=== PATIENT | male | born 2000 | race Caucasian/White ===

== ENCOUNTER → 2023-11-25 | Emergency (ER) | payer SELFPAY ==
[~2023-11-25] MED LIST: IBUPROFEN 200 MG TAB PO ONE; IBUPROFEN 400 MG TAB ONE; LIDOCAINE 2% W/EPI 1:200,000 MPF 20 ML VIAL IM ONE
--- OUTSIDE RECORDS SUMMARY | 2023-11-25 16:33 | XMS REPORT | Continuity of Care Document ---
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 erythrocyte mean corpuscular volume (MCV) measurement 2019-08-08 03:30:00* Test Item Value Reference Range Interpretation Comme nts Mean Corpuscular Volume (shane t code = 787-2) 92 fL 80-94 [facility] HealthAutomated erythrocyte mean corpuscular hemoglobin (mass per erythrocyte)2019-08-08 03:30:00* Test Item Value Reference Range Interpretation Comme nts Mean Corpuscular Hemoglobin (test code = 785-6) 29.4 pg 27.0-33.0 [facility] HealthAutomated erythrocyte mean corpuscular hemoglobin concentration measurement (mass/[id number] 03:30:00* Test Item Value Reference Range Interpretation Comme nts Mean Corpuscular Hemoglobin Concent (test code = 786-4) 32.0 g/dL 33.0-37.0 [facility] HealthAutomated erythrocyte distribution width [id number] 03:30:00 * Test Item Value Reference Range Interpretation Comme nts Red Cell Distribution Width (test code = 788-0) 13.2 % 10.7-14.5 [facility] HealthAutomated blood platelet count (count/volume)2019-08-08 03:30:00 * Test Item Value Reference Range Interpretation Comme nts Platelet Count (test code = 777-3) 154 10*3/uL 150-450 [facility] HealthAutomated blood platelet mean volume txskkwbqrmz4733-82-04 03:30:00* Test Item Value Reference Range Interpretation Comme nts Mean Platelet Volume (test c ode = 09171-1) 9.5 5.7-10.7 [facility] HealthService comment [id number] 03:30:00* Test Item Value Reference Range Interpretation Comme nts Manual Differential (test co de = 8265-1) ----- [facility] HealthManual blood segmented neutrophils/100 vwaqwybxqs8183-83-45 03:30:00* Test Item Value Reference Range Interpretation Comme nts Neutrophils % (Manual) (test code = 769-0) 60 % 42-75 [facility] HealthManual blood band neutrophils form/100 ozgqasxbjn3725-96-06 03:30:00* Test Item Value Reference Range Interpretation Comme nts Band Neutrophils % (Manual) (test code = 764-1) 7 % 5-11 [facility] HealthManual blood lymphocytes/100 phrwwlakur5167-70-55 03:30:00* Test Item Value Reference Range Interpretation Comme nts Lymphocytes % (Manual) (test code = 737-7) 15 % 21-51 [facility] HealthManual blood monocytes/100 ijhfoccyme9748-84-20 03:30:00* Test Item Value Reference Range Interpretation Comme nts Monocytes % (Manual) (test c ode = 744-3) 12 % 1-9 [facility] HealthManual blood eosinophil count as percentage of total leukocytes 2019-08-08 03:30:00* Test Item Value Reference Range Interpretation Comme nts Eosinophils % (Manual) (test code = 714-6) 6 % 0-7 [facility] HealthBlood platelet detection by light dysrojihec2198-11-29 03:30:00* Test Item Value Reference Range Interpretation Comme nts Platelet Estimate (test code = 9317-9) Adequate [facility] HealthBlood erythrocyte morphology finding laczwfghxwpzta3502-70-73 03:30:00* Test Item Value Reference Range Interpretation Comme nts Red Blood Cell Morphology (t est code = 6742-1) Normal [facility] HealthWhole blood leukocyte morphology finding jcazxxfnrdhxkz7453-44-89 03:30:00* Test Item Value Reference Range Interpretation Comme nts White Blood Cell Morphology (test code = 46779-2) Normal [facility] HealthDetermination of inhaled oxygen concentration (volume fraction) 2019-08-08 03:29:00* Test Item Value Reference Range Interpretation Comme nts FiO2 (test code = 3150-0) 40 % [facility] HealthArterial blood pH zkuoiipxrun2045-99-93 03:29:00* Test Item Value Reference Range Interpretation Comme nts Arterial Blood pH (test code = 2744-1) 7.400 7.350-7. 450 [facility] HealthArterial blood partial pressure of carbon wvntpyr7173-65-95 03:29:00* Test Item Value Reference Range Interpretation Comme nts Arterial Blood Partial Press ure CO2 (test code = 2019-8) 46.7 mm[Hg] 35.0-45.0 [facility] HealthArterial blood partial pressure of oxygen urtaezeglqp5168-56-51 03:29:00* Test Item Value Reference Range Interpretation Comme nts Arterial Blood Partial Press ure O2 (test code = 2703-7) 161.2 mm[Hg] 70.0-100.0 [facility] HealthArterial blood bicarbonate measurement (moles/volume)2019-08-08 03:29:00* Test Item Value Reference Range Interpretation Comme [facility] Arterial Blood HCO3 (test co de = 1960-4) 28.3 mmol/L 22.0-28.0 [facility] HealthArterial blood base excess determination by calculation (moles/volume)2019-08-08 03:29:00* Test Item Value Reference Range Interpretation Comme [facility] Arterial Blood Base Excess ( test code = 1925-7) 2.9 mmol/L -2.0-2.0 [facility] HealthArterial blood hemoglobin measurement by oximetry (mass/volume) 2019-08-08 03:29:00* Test Item Value Reference Range Interpretation Comme [facility] Arterial Blood Hemoglobin (t est code = 57170-6) 12.6 g/dL See Comment [facility] HealthArterial blood oxygen saturation botovfksobf4619-16-58 03:29:00* Test Item Value Reference Range Interpretation Comme [facility] Arterial Blood Oxygen Satura tion (test code = 2708-6) 98.9 % 93.0-100.0 [facility] HealthArterial blood carboxyhemoglobin/total hemoglobin ratio (mass fraction)2019-08-08 03:29:00* Test Item Value Reference Range Interpretation Comme [facility] Arterial Blood Carboxyhemogl obin (test code = 2030-5) 0.1 % <3.0 [facility] HealthArterial blood methemoglobin/total hemoglobin ratio (mass fraction)2019-08-08 03:29:00* Test Item Value Reference Range Interpretation Comme [facility] Arterial Blood Methemoglobin (test code = 2615-3) 0.1 % <3.0 [facility] HealthArterial blood oxyhemoglobin/total hemoglobin ratio (mass fraction)2019-08-08 03:29:00* Test Item Value Reference Range Interpretation Comme [facility] Arterial Blood Oxyhemoglobin (test code = 2714-4) 98.7 % 93.0-100.0 [facility] HealthArterial blood deoxyhemoglobin/total hemoglobin mass ratio 2019-08-08 03:29:00* Test Item Value Reference Range Interpretation Comme [facility] Reduced Hemoglobin (test cod e = 81708-1) 1.1 % <2.0 [facility] HealthArterial blood oxygen content by qwtddvqvonc8775-42-15 03:29:00* Test Item Value Reference Range Interpretation Comme [facility] Arterial Blood Oxygen Conten t (test code = 89874-0) 17.8 mL/dL 16.0-22.0 [facility] HealthGas deliv source Tzlismjrqow8261-92-61 03:29:00* Test Item Value Reference Range Interpretation Comme nts Oxygen Delivery Device (test code = 04648-6) VENTILATOR [facility] HealthSpecimen drawn from [id number] 03:29:00* Test Item Value Reference Range Interpretation Comme nts Blood Gas Puncture Site (shane t code = 44571-8) Right Radial [facility] HealthAssessment of wrist artery patency prior to arterial puncture 2019-08-08 03:29:00* Test Item Value Reference Range Interpretation Comme nts Stiven Test (test code = 70838-2) Pass [facility] HealthArterial blood oxygen saturation measurement by pulse oximetry 2019-08-08 03:29:00* Test Item Value Reference Range Interpretation Comme nts Oxygen Saturation (Pulse Oxi metry) (test code = 51361-4) 100 % [facility] HealthVT rate setting [id number] 03:29:00* Test Item Value Reference Range Interpretation Comme nts Blood Gas Tidal Volume (test code = 90154-2) 600.0 mL [facility] HealthTidal volume.spontaneous/Body weight [Volume/mass] --on mvegtlrlna6260-09-19 03:29:00* Test Item Value Reference Range Interpretation Comme nts Blood Gas Spontaneous Tidal Volume (test code = 25501-7) 229 mL [facility] HealthPAW @ peak insp flow max setting [id number] 03:29:00* Test Item Value Reference Range Interpretation Comme nts Bld Gas Peak Inspiratory Pressure (test code = 85239-6) 18.0 cm[H2O] [facility] HealthMinute volume setting [id number] 03:29:00* Test Item Value Reference Range Interpretation Comme nts Blood Gas Minute Volume (shane t code = 20654-0) 7.41 /min [facility] HealthResp [id number] 03:29:00* Test Item Value Reference Range Interpretation Comme nts Blood Gas Respiration Rate ( test code = 9279-1) 17 /min [facility] HealthPressure support setting [id number] 03:29:00* Test Item Value Reference Range Interpretation Comme nts Blood Gas Pressure Support ( test code = 40172-8) 5 cm[H2O] [facility] HealthVentilation mode [id number] 03:29:00* Test Item Value Reference Range Interpretation Comme [facility] Blood Gas Vent Mode (test co de = 95503-5) SIMV [facility] HealthBreaths setting [id number] 03:29:00* Test Item Value Reference Range Interpretation Comme [facility] Blood Gas Set Respiration Ra te (test code = 64703-9) 8.0 /min [facility] (CPAP)2019-08-08 03:29:00* Test Item Value Reference Range Interpretation Comme nts Blood Gas PEEP or CPAP (test code = 09336-7) 5.0 cm[H2O] [facility] [id number] 03:29:00* Test Item Value Reference Range Interpretation Comme nts N/A (test code = 8268-5) 1 [facility] AdministrationDetermination of inhaled oxygen concentration (volume fraction) 2019-08-08 03:29:00* Test Item Value Reference Range Interpretation Comme nts FiO2 (test code = 3150-0) 40 % [facility] AdministrationArter[facility] blood pH sbdiuahemcj7833-78-53 03:29:00* Test Item Value Reference Range Interpretation Comme [facility] Arterial Blood pH (test code = 2744-1) 7.400 7.350-7. 450 [facility] AdministrationAr[facility] blood partial pressure of carbon ajhvohr4988-23-52 03:29:00* Test Item Value Reference Range Interpretation Comme [facility] Arterial Blood Partial Press ure CO2 (test code = 2019-8) 46.7 mm[Hg] 35.0-45.0 [facility]Ar[facility] partial pressure of oxygen mufmsqqymmi8826-35-01 03:29:00* Test Item Value Reference Range Interpretation Comme [facility] Arterial Blood Partial Press ure O2 (test code = 2703-7) 161.2 mm[Hg] 70.0-100.0 [facility] AdministrationAr[facility] blood bicarbonate measurement (moles/volume)2019-08-08 03:29:00* Test Item Value Reference Range Interpretation Comme [facility] Arterial Blood HCO3 (test co de = 1959-4) 28.3 mmol/L 22.0-28.0 [facility] AdministrationAr[facility] blood base excess determination by calculation (moles/volume)2019-08-08 03:29:00* Test Item Value Reference Range Interpretation Comme [facility] Arterial Blood Base Excess ( test code = 1925-7) 2.9 mmol/L -2.0-2.0 [facility] HealthArterial blood hemoglobin measurement by oximetry (mass/volume) 2019-08-08 03:29:00* Test Item Value Reference Range Interpretation Comme [facility] Arterial Blood Hemoglobin (t est code = 79083-2) 12.6 g/dL See Comment [facility] HealthArterial blood oxygen saturation ooztnhkamzh0774-78-71 03:29:00* Test Item Value Reference Range Interpretation Comme [facility] Arterial Blood Oxygen Satura tion (test code = 2708-6) 98.9 % 93.0-100.0 [facility] HealthArterial blood carboxyhemoglobin/total hemoglobin ratio (mass fraction)2019-08-08 03:29:00* Test Item Value Reference Range Interpretation Comme [facility] Arterial Blood Carboxyhemogl obin (test code = 2030-5) 0.1 % <3.0 [facility] HealthArterial blood methemoglobin/total hemoglobin ratio (mass fraction)2019-08-08 03:29:00* Test Item Value Reference Range Interpretation Comme [facility] Arterial Blood Methemoglobin (test code = 2615-3) 0.1 % <3.0 [facility] HealthArterial blood oxyhemoglobin/total hemoglobin ratio (mass fraction)2019-08-08 03:29:00* Test Item Value Reference Range Interpretation Comme [facility] Arterial Blood Oxyhemoglobin (test code = 2714-4) 98.7 % 93.0-100.0 [facility] HealthArterial blood deoxyhemoglobin/total hemoglobin mass ratio 2019-08-08 03:29:00* Test Item Value Reference Range Interpretation Comme [facility] Reduced Hemoglobin (test cod e = 34027-9) 1.1 % <2.0 [facility] AdministrationAr[facility] blood oxygen content by ljoshiqeefz5496-36-58 03:29:00* Test Item Value Reference Range Interpretation Comme [facility] Arterial Blood Oxygen Conten t (test code = 53771-8) 17.8 mL/dL 16.0-22.0 [facility] HealthGas deliv source Ibldcqtbhhf2056-87-04 03:29:00* Test Item Value Reference Range Interpretation Comme [facility] Oxygen Delivery Device (test code = 67402-1) VENTILATOR [facility] HealthSpecimen drawn from [id number] 03:29:00* Test Item Value Reference Range Interpretation Comme nts Blood Gas Puncture Site (shane t code = 23350-9) Right Radial [facility] HealthAssessment of wrist artery patency prior to arterial puncture 2019-08-08 03:29:00* Test Item Value Reference Range Interpretation Comme nts Stiven Test (test code = 68026-4) Pass [facility] HealthArterial blood oxygen saturation measurement by pulse oximetry 2019-08-08 03:29:00* Test Item Value Reference Range Interpretation Comme nts Oxygen Saturation (Pulse Oxi metry) (test code = 68009-7) 100 % [facility] HealthVT rate setting [id number] 03:29:00* Test Item Value Reference Range Interpretation Comme nts Blood Gas Tidal Volume (test code = 74102-2) 600.0 mL [facility] HealthTidal volume.spontaneous/Body weight [Volume/mass] --on xtlhxslbid1621-42-36 03:29:00* Test Item Value Reference Range Interpretation Comme nts Blood Gas Spontaneous Tidal Volume (test code = 62064-7) 229 mL [facility] HealthPAW @ peak insp flow max setting [id number] 03:29:00* Test Item Value Reference Range Interpretation Comme nts Bld Gas Peak Inspiratory Pressure (test code = 55401-9) 18.0 cm[H2O] [facility] HealthMinute volume setting [id number] 03:29:00* Test Item Value Reference Range Interpretation Comme nts Blood Gas Minute Volume (shane t code = 19519-0) 7.41 /min [facility] HealthResp [id number] 03:29:00* Test Item Value Reference Range Interpretation Comme nts Blood Gas Respiration Rate ( test code = 9279-1) 17 /min [facility] HealthPressure support setting Wwys6423-59-00 03:29:00* Test Item Value Reference Range Interpretation Comme nts Blood Gas Pressure Support ( test code = 17410-2) 5 cm[H2O] [facility] HealthVentilation mode [id number] 03:29:00* Test Item Value Reference Range Interpretation Comme nts Blood Gas Vent Mode (test co de = 09700-0) SIMV [facility] HealthBreaths setting [id number] 03:29:00* Test Item Value Reference Range Interpretation Comme nts Blood Gas Set Respiration Ra te (test code = 64662-8) 8.0 /min [facility] AdministrationContinuous positive airway pressure (CPAP)2019-08-08 03:29:00* Test Item Value Reference Range Interpretation Comme [facility] Blood Gas PEEP or CPAP (test code = 15393-5) 5.0 cm[H2O] [facility] [id number] 03:29:00* Test Item Value Reference Range Interpretation Comme [facility] N/A (test code = 8268-5) 1 [facility] AdministrationDetermination of inhaled oxygen concentration (volume fraction) 2019-08-08 03:29:00* Test Item Value Reference Range Interpretation Comme [facility] FiO2 (test code = 3150-0) 40 % [facility] AdministrationArterial blood pH ehlmeqyzabb5926-77-92 03:29:00* Test Item Value Reference Range Interpretation Comme [facility] Arterial Blood pH (test code = 2744-1) 7.400 7.350-7. 450 [facility] AdministrationArterial blood partial pressure of carbon munbbrw7337-43-37 03:29:00* Test Item Value Reference Range Interpretation Comme [facility] Arterial Blood Partial Press ure CO2 (test code = 2019-8) 46.7 mm[Hg] 35.0-45.0 [facility] HealthArterial blood partial pressure of oxygen mdddmlhhjjr4557-76-24 03:29:00* Test Item Value Reference Range Interpretation Comme [facility] Arterial Blood Partial Press ure O2 (test code = 2703-7) 161.2 mm[Hg] 70.0-100.0 [facility] AdministrationArterial blood bicarbonate measurement (moles/volume)2019-08-08 03:29:00* Test Item Value Reference Range Interpretation Comme [facility] Arterial Blood HCO3 (test co de = 1960-4) 28.3 mmol/L 22.0-28.0 [facility] AdministrationArterial blood base excess determination by calculation (moles/volume)2019-08-08 03:29:00* Test Item Value Reference Range Interpretation Comme [facility] Arterial Blood Base Excess ( test code = 1925-7) 2.9 mmol/L -2.0-2.0 [facility] AdministrationAr[facility]ial blood hemoglobin measurement by oximetry (mass/volume) 2019-08-08 03:29:00* Test Item Value Reference Range Interpretation Comme [facility] Arterial Blood Hemoglobin (t est code = 11561-8) 12.6 g/dL See Comment [facility] HealthArterial blood oxygen saturation wfmhlrioqli1371-44-02 03:29:00* Test Item Value Reference Range Interpretation Comme [facility] Arterial Blood Oxygen Satura tion (test code = 2708-6) 98.9 % 93.0-100.0 [facility] HealthArterial blood carboxyhemoglobin/total hemoglobin ratio (mass fraction)2019-08-08 03:29:00* Test Item Value Reference Range Interpretation Comme [facility] Arterial Blood Carboxyhemogl obin (test code = 2030-5) 0.1 % <3.0 [facility] HealthArterial blood methemoglobin/total hemoglobin ratio (mass fraction)2019-08-08 03:29:00* Test Item Value Reference Range Interpretation Comme [facility] Arterial Blood Methemoglobin (test code = 2615-3) 0.1 % <3.0 [facility] HealthArterial blood oxyhemoglobin/total hemoglobin ratio (mass fraction)2019-08-08 03:29:00* Test Item Value Reference Range Interpretation Comme [facility] Arterial Blood Oxyhemoglobin (test code = 2714-4) 98.7 % 93.0-100.0 [facility] HealthArterial blood deoxyhemoglobin/total hemoglobin mass ratio 2019-08-08 03:29:00* Test Item Value Reference Range Interpretation Comme [facility] Reduced Hemoglobin (test cod e = 72736-8) 1.1 % <2.0 [facility] HealthArterial blood oxygen content by dzmkillcflr7785-99-46 03:29:00* Test Item Value Reference Range Interpretation Comme [facility] Arterial Blood Oxygen Conten t (test code = 72263-2) 17.8 mL/dL 16.0-22.0 [facility] HealthGas deliv source Hregkojoqfr1786-03-47 03:29:00* Test Item Value Reference Range Interpretation Comme [facility] Oxygen Delivery Device (test code = 88369-6) VENTILATOR [facility] HealthSpecimen drawn from [id number] 03:29:00* Test Item Value Reference Range Interpretation Comme [facility] Blood Gas Puncture Site (shane t code = 24201-0) Right Radial [facility] HealthAssessment of wrist artery patency prior to arterial puncture 2019-08-08 03:29:00* Test Item Value Reference Range Interpretation Comme [facility] Stiven Test (test code = 17935-0) Pass [facility] HealthArterial blood oxygen saturation measurement by pulse oximetry 2019-08-08 03:29:00* Test Item Value Reference Range Interpretation Comme nts Oxygen Saturation (Pulse Oxi metry) (test code = 99946-9) 100 % [facility] HealthVT rate setting [id number] 03:29:00* Test Item Value Reference Range Interpretation Comme nts Blood Gas Tidal Volume (test code = 26345-4) 600.0 mL [facility] HealthTidal volume.spontaneous/Body weight [Volume/mass] --on dectdeqllc5508-38-63 03:29:00* Test Item Value Reference Range Interpretation Comme nts Blood Gas Spontaneous Tidal Volume (test code = 69605-0) 229 mL [facility] HealthPAW @ peak insp flow max setting [id number] 03:29:00* Test Item Value Reference Range Interpretation Comme nts Bld Gas Peak Inspiratory Pressure (test code = 29209-3) 18.0 cm[H2O] [facility] HealthMinute volume setting [id number] 03:29:00* Test Item Value Reference Range Interpretation Comme nts Blood Gas Minute Volume (shane t code = 53398-0) 7.41 /min [facility] HealthResp [id number] 03:29:00* Test Item Value Reference Range Interpretation Comme nts Blood Gas Respiration Rate ( test code = 9279-1) 17 /min [facility] HealthPressure support setting [id number] 03:29:00* Test Item Value Reference Range Interpretation Comme nts Blood Gas Pressure Support ( test code = 02822-8) 5 cm[H2O] [facility] HealthVentilation mode Isvv2049-08-50 03:29:00* Test Item Value Reference Range Interpretation Comme nts Blood Gas Vent Mode (test co de = 65528-4) SIMV [facility] HealthBreaths setting [id number] 03:29:00* Test Item Value Reference Range Interpretation Comme nts Blood Gas Set Respiration Ra te (test code = 52386-8) 8.0 /min [facility] HealthContinuous positive airway pressure (CPAP)2019-08-08 03:29:00* Test Item Value Reference Range Interpretation Comme nts Blood Gas PEEP or CPAP (test code = 18136-7) 5.0 cm[H2O] [facility] HealthService Cmnt 07 [id number] 03:29:00* Test Item Value Reference Range Interpretation Comme nts N/A (test code = 8268-5) 1 [facility] HealthUrinalysis specimen collection [id number] 12:00:00* Test Item Value Reference Range Interpretation Comme nts Urine Source (test code = 91451-0) URCATH [facility] HealthColor of Urine by Bqly0788-00-60 12:00:00* Test Item Value Reference Range Interpretation Comme nts Urine Color (test code = 31409-9) Yellow Yel-Adeline * [facility] HealthUrine clarity cwoaexhkqbhzh2753-33-69 12:00:00* Test Item Value Reference Range Interpretation Comme nts Urine Appearance (test code = 13257-8) Clear Clear * [facility]Urine pH measurement by automated test [id number] 12:00:00* Test Item Value Reference Range Interpretation Comme nts Urine pH (test code = 75886-3) 6.0 5.0-8.0 [facility] HealthSpecific gravity of Urine by Automated test [id number] 12:00:00* Test Item Value Reference Range Interpretation Comme nts Urine Specific [place] (test code = 05517-5) 1.029 1.005-1.030 [facility]Urine protein measurement by automated test strip (mass/volume) 2019-08-07 12:00:00* Test Item Value Reference Range Interpretation Comme nts Urine Protein (test code = 77773-1) 10 mg/dL Negative * [facility]Urine glucose measurement by automated test strip (mass/volume) 2019-08-07 12:00:00* Test Item Value Reference Range Interpretation Comme nts Urine Glucose (UA) (test cod e = 27599-7) Negative mg/dL Negative * [facility] HealthUrine ketones measurement by automated test strip (mass/volume) 2019-08-07 12:00:00* Test Item Value Reference Range Interpretation Comme nts Urine Ketones (test code = 90399-5) Negative mg/dL Negative * [facility]Urine erythrocytes count by automated test strip (number/volume) 2019-08-07 12:00:00* Test Item Value Reference Range Interpretation Comme nts Urine Occult Blood (test cod e = 38089-5) Negative Negative * [facility] HealthUrine nitrite detection by automated test [id number] 12:00:00* Test Item Value Reference Range Interpretation Comme nts Urine Nitrite (test code = 35176-0) Negative Negative [facility]Urine total bilirubin measurement by automated test strip (mass/volume)2019-08-07 12:00:00* Test Item Value Reference Range Interpretation Comme nts Urine Bilirubin (test code = 97277-5) Negative mg/dL Negative [facility]Urine urobilinogen measurement by automated test strip (mass/volume)2019-08-07 12:00:00* Test Item Value Reference Range Interpretation Comme nts Urine Urobilinogen (test cod e = 62932-1) Negative mg/dL 0.0-1.0 [facility]Urine leukocytes count by automated test strip (number/volume) 2019-08-07 12:00:00* Test Item Value Reference Range Interpretation Comme nts Urine Leukocyte Esterase (test code = 93962-5) Negative {Henry}/uL Negative [facility] HealthMicroscopic examination of czkng9251-42-37 12:00:00* Test Item Value Reference Range Interpretation Comme nts Microscopic Urinalysis (T) ( test code = 42085-2) ----- [facility] HealthUrine sediment erythrocyte count by microscopy (number/high power field)2019-08-07 12:00:00* Test Item Value Reference Range Interpretation Comme nts Urine RBC (test code = 63803-2) 3-10 /[HPF] 0-2 [facility]Urine sediment leukocyte count by microscopy (number/high power field)2019-08-07 12:00:00* Test Item Value Reference Range Interpretation Comme nts Urine WBC (test code = 5821-4) 0-5 /[HPF] 0-5 [facility]Urine sediment epithelial cell count by microscopy (number/high power field)2019-08-07 12:00:00* Test Item Value Reference Range Interpretation Comme nts Urine Epithelial Cells (test code = 5787-7) None Seen /[HPF] Few [facility] HealthUrine sediment crystal count by microscopy (number/high power field)2019-08-07 12:00:00* Test Item Value Reference Range Interpretation Comme nts Urine Crystals (test code = 96402-6) None Seen /[HPF] None * [facility]Urine sediment bacteria count by microscopy (number/high power field)2019-08-07 12:00:00* Test Item Value Reference Range Interpretation Comme nts Urine Bacteria (test code = 5769-5) None Seen /[HPF] None [facility]Urine sediment casts count by microscopy (number/low power field) 2019-08-07 12:00:00* Test Item Value Reference Range Interpretation Comme nts Urine Casts (test code = 9842-6) Present /[LPF] None * [facility]Urine sediment hyaline cast count by microscopy (number/low power field)2019-08-07 12:00:00* Test Item Value Reference Range Interpretation Comme nts Urine Hyaline Casts (test co de = 5796-8) 0-1 /[LPF] 0-1 [facility] HealthYeast detection in urine sediment by light bwdzpgsflw3900-30-32 12:00:00* Test Item Value Reference Range Interpretation Comme nts Urine Yeast (test code = 95572-2) None Seen /[HPF] None [facility] comment [id number] 12:00:00* Test Item Value Reference Range Interpretation Comme nts Urinalysis Comment (test code = 8262-8) * See_Comment [Automated messa ge] The system which generated this result transmitted reference range: *. The reference range was not used to interpret this result as normal/abnormal. [facility] HealthUrinalysis specimen collection [id number] 12:00:00* Test Item Value Reference Range Interpretation Comme nts Urine Source (test code = 48005-2) URCATH PETE HealthColor of Urine by [id number] 12:00:00* Test Item Value Reference Range Interpretation Comme nts Urine Color (test code = 54744-2) Yellow Yel-Adeline * [facility] HealthUrine clarity qrezcufpyqylr4687-72-46 12:00:00* Test Item Value Reference Range Interpretation Comme nts Urine Appearance (test code = 85764-3) Clear Clear * [facility]Urine pH measurement by automated test [id number] 12:00:00* Test Item Value Reference Range Interpretation Comme nts Urine pH (test code = 16185-6) 6.0 5.0-8.0 [facility]Specific gravity of Urine by Automated test [id number] 12:00:00* Test Item Value Reference Range Interpretation Comme nts Urine Specific [place] (test code = 90656-6) 1.029 1.005-1.030 [facility]Urine protein measurement by automated test strip (mass/volume) 2019-08-07 12:00:00* Test Item Value Reference Range Interpretation Comme nts Urine Protein (test code = 87651-0) 10 mg/dL Negative * [facility]Urine glucose measurement by automated test strip (mass/volume) 2019-08-07 12:00:00* Test Item Value Reference Range Interpretation Comme nts Urine Glucose (UA) (test cod e = 95328-3) Negative mg/dL Negative * [facility] HealthUrine ketones measurement by automated test strip (mass/volume) 2019-08-07 12:00:00* Test Item Value Reference Range Interpretation Comme nts Urine Ketones (test code = 70936-6) Negative mg/dL Negative * [facility]Urine erythrocytes count by automated test strip (number/volume) 2019-08-07 12:00:00* Test Item Value Reference Range Interpretation Comme nts Urine Occult Blood (test cod e = 62317-5) Negative Negative * [facility] HealthUrine nitrite detection by automated test [id number] 12:00:00* Test Item Value Reference Range Interpretation Comme nts Urine Nitrite (test code = 07639-2) Negative Negative [facility]Urine total bilirubin measurement by automated test strip (mass/volume)2019-08-07 12:00:00* Test Item Value Reference Range Interpretation Comme nts Urine Bilirubin (test code = 62082-0) Negative mg/dL Negative [facility]Urine urobilinogen measurement by automated test strip (mass/volume)2019-08-07 12:00:00* Test Item Value Reference Range Interpretation Comme nts Urine Urobilinogen (test cod e = 63068-2) Negative mg/dL 0.0-1.0 [facility]Urine leukocytes count by automated test strip (number/volume) 2019-08-07 12:00:00* Test Item Value Reference Range Interpretation Comme nts Urine Leukocyte Esterase (test code = 18058-5) Negative {Henry}/uL Negative [facility] HealthMicroscopic examination of [id number] 12:00:00* Test Item Value Reference Range Interpretation Comme nts Microscopic Urinalysis (T) ( test code = 40368-0) ----- [facility] HealthUrine sediment erythrocyte count by microscopy (number/high power field)2019-08-07 12:00:00* Test Item Value Reference Range Interpretation Comme nts Urine RBC (test code = 62105-6) 3-10 /[HPF] 0-2 [facility]Urine sediment leukocyte count by microscopy (number/high power field)2019-08-07 12:00:00* Test Item Value Reference Range Interpretation Comme nts Urine WBC (test code = 5821-4) 0-5 /[HPF] 0-5 [facility]Urine sediment epithelial cell count by microscopy (number/high power field)2019-08-07 12:00:00* Test Item Value Reference Range Interpretation Comme nts Urine Epithelial Cells (test code = 5787-7) None Seen /[HPF] Few [facility] HealthUrine sediment crystal count by microscopy (number/high power field)2019-08-07 12:00:00* Test Item Value Reference Range Interpretation Comme nts Urine Crystals (test code = 40013-4) None Seen /[HPF] None * [facility]Urine sediment bacteria count by microscopy (number/high power field)2019-08-07 12:00:00* Test Item Value Reference Range Interpretation Comme nts Urine Bacteria (test code = 5769-5) None Seen /[HPF] None [facility]Urine sediment casts count by microscopy (number/low power field) 2019-08-07 12:00:00* Test Item Value Reference Range Interpretation Comme nts Urine Casts (test code = 9842-6) Present /[LPF] None * [facility]Urine sediment hyaline cast count by microscopy (number/low power field)2019-08-07 12:00:00* Test Item Value Reference Range Interpretation Comme nts Urine Hyaline Casts (test co de = 5796-8) 0-1 /[LPF] 0-1 [facility] HealthYeast detection in urine sediment by light rszdaljfnt1762-94-07 12:00:00* Test Item Value Reference Range Interpretation Comme nts Urine Yeast (test code = 88154-7) None Seen /[HPF] None [facility] comment 12:00:00* Test Item Value Reference Range Interpretation Comme nts Urinalysis Comment (test code = 8262-8) * See_Comment [Automated messa ge] The system which generated this result transmitted reference range: *. The reference range was not used to interpret this result as normal/abnormal. [facility] HealthUrinalysis specimen collection [id number] 12:00:00* Test Item Value Reference Range Interpretation Comme nts Urine Source (test code = 03785-3) URCATH [facility] HealthColor of Urine by Rcoi0559-59-81 12:00:00* Test Item Value Reference Range Interpretation Comme nts Urine Color (test code = 42379-7) Yellow Yel-Adeline * [facility] HealthUrine clarity apjzzrouqhjhd7259-29-63 12:00:00* Test Item Value Reference Range Interpretation Comme nts Urine Appearance (test code = 47072-4) Clear Clear * [facility]Urine pH measurement by automated test [id number] 12:00:00* Test Item Value Reference Range Interpretation Comme nts Urine pH (test code = 58937-3) 6.0 5.0-8.0 [facility]Specific gravity of Urine by Automated test tdhnu1793-89-02 12:00:00* Test Item Value Reference Range Interpretation Comme nts Urine Specific [place] (test code = 36450-0) 1.029 1.005-1.030 [facility]Urine protein measurement by automated test strip (mass/volume) 2019-08-07 12:00:00* Test Item Value Reference Range Interpretation Comme nts Urine Protein (test code = 03522-6) 10 mg/dL Negative * [facility]Urine glucose measurement by automated test strip (mass/volume) 2019-08-07 12:00:00* Test Item Value Reference Range Interpretation Comme nts Urine Glucose (UA) (test cod e = 67871-0) Negative mg/dL Negative * [facility]Urine ketones measurement by automated test strip (mass/volume) 2019-08-07 12:00:00* Test Item Value Reference Range Interpretation Comme nts Urine Ketones (test code = 84267-2) Negative mg/dL Negative * [facility]Urine erythrocytes count by automated test strip (number/volume) 2019-08-07 12:00:00* Test Item Value Reference Range Interpretation Comme nts Urine Occult Blood (test cod e = 35469-8) Negative Negative * [facility] HealthUrine nitrite detection by automated test [id number] 12:00:00* Test Item Value Reference Range Interpretation Comme nts Urine Nitrite (test code = 38591-0) Negative Negative [facility]Urine total bilirubin measurement by automated test strip (mass/volume)2019-08-07 12:00:00* Test Item Value Reference Range Interpretation Comme nts Urine Bilirubin (test code = 67595-7) Negative mg/dL Negative [facility]Urine urobilinogen measurement by automated test strip (mass/volume)2019-08-07 12:00:00* Test Item Value Reference Range Interpretation Comme nts Urine Urobilinogen (test cod e = 13218-2) Negative mg/dL 0.0-1.0 [facility]rine leukocytes count by automated test strip (number/volume) 2019-08-07 12:00:00* Test Item Value Reference Range Interpretation Comme nts Urine Leukocyte Esterase (test code = 05807-1) Negative {Henry}/uL Negative [facility] HealthMicroscopic examination of [id number] 12:00:00* Test Item Value Reference Range Interpretation Comme nts Microscopic Urinalysis (T) ( test code = 01349-4) ----- [facility] HealthUrine sediment erythrocyte count by microscopy (number/high power field)2019-08-07 12:00:00* Test Item Value Reference Range Interpretation Comme nts Urine RBC (test code = 38690-1) 3-10 /[HPF] 0-2 [facility]rine sediment leukocyte count by microscopy (number/high power field)2019-08-07 12:00:00* Test Item Value Reference Range Interpretation Comme nts Urine WBC (test code = 5821-4) 0-5 /[HPF] 0-5 [facility]Urine sediment epithelial cell count by microscopy (number/high power field)2019-08-07 12:00:00* Test Item Value Reference Range Interpretation Comme nts Urine Epithelial Cells (test code = 5787-7) None Seen /[HPF] Few [facility]Urine sediment crystal count by microscopy (number/high power field)2019-08-07 12:00:00* Test Item Value Reference Range Interpretation Comme nts Urine Crystals (test code = 61319-2) None Seen /[HPF] None * [facility]Urine sediment bacteria count by microscopy (number/high power field)2019-08-07 12:00:00* Test Item Value Reference Range Interpretation Comme nts Urine Bacteria (test code = 5769-5) None Seen /[HPF] None [facility]Urine sediment casts count by microscopy (number/low power field) 2019-08-07 12:00:00* Test Item Value Reference Range Interpretation Comme nts Urine Casts (test code = 9842-6) Present /[LPF] None * [facility]rine sediment hyaline cast count by microscopy (number/low power field)2019-08-07 12:00:00* Test Item Value Reference Range Interpretation Comme nts Urine Hyaline Casts (test co de = 5796-8) 0-1 /[LPF] 0-1 [facility] HealthYeast detection in urine sediment by light tgljldpapr7333-58-00 12:00:00* Test Item Value Reference Range Interpretation Comme nts Urine Yeast (test code = 63441-6) None Seen /[HPF] None [facility] comment 12:00:00* Test Item Value Reference Range Interpretation Comme nts Urinalysis Comment (test code = 8262-8) * See_Comment [Automated messa ge] The system which generated this result transmitted reference range: *. The reference range was not used to interpret this result as normal/abnormal. [facility] HealthManual blood basophils/100 qeaublllkz6323-57-79 04:55:00* Test Item Value Reference Range Interpretation Comme nts Basophils % (Manual) (test c ode = 707-0) 1 % 0-2 [facility] HealthManual blood basophils/100 wdpdiuyjpt9750-60-06 04:55:00* Test Item Value Reference Range Interpretation Comme nts Basophils % (Manual) (test c ode = 707-0) 1 % 0-2 [facility] HealthManual blood basophils/100 nwkipcptzz6175-25-28 04:55:00* Test Item Value Reference Range Interpretation Comme nts Basophils % (Manual) (test c ode = 707-0) 1 % 0-2 [facility] HealthUrine sediment granular casts count by microscopy (number/low power field)2019-08-06 16:55:00* Test Item Value Reference Range Interpretation Comme nts Urine Granular Casts (test c ode = 5793-5) 0-1 /[LPF] None * [facility] HealthUrine methamphetamine ljbohj0943-41-12 16:55:00* Test Item Value Reference Range Interpretation Comme nts Urine Methamphetamines Scree n (test code = 92658-6) Negative ng/mL Altben=694 [facility] HealthUrine propoxyphene screening huop1891-62-59 16:55:00* Test Item Value Reference Range Interpretation Comme nts Urine Propoxyphene Screen (test code = 99730-7) Negative ng/mL Acjkeb=834 [facility]Urine amphetamines detection by screening vaeaqz9162-88-38 16:55:00* Test Item Value Reference Range Interpretation Comme nts Urine Amphetamines Screen (test code = 67566-5) Positive ng/mL Izwcvc=223 [facility] buprenorphine screen with reflex iaayxsbhkbhu1113-49-08 16:55:00* Test Item Value Reference Range Interpretation Comme nts Urine Buprenorphine (test co de = 3414-0) Negative ng/mL Cutoff=10 [facility]Urine barbiturates detection by screening tqwkaw9940-43-37 16:55:00* Test Item Value Reference Range Interpretation Comme nts Urine Barbiturates Screen (test code = 62089-6) Negative ng/mL Rcysqn=697 [facility]rine benzodiazepines detection by screening oyrouj5441-10-37 16:55:00* Test Item Value Reference Range Interpretation Comme nts Urine Benzodiazepines Screen (test code = 83669-8) Negative ng/mL Khrpcr=085 [facility]rine benzoylecgonine detection by screening nqutig2263-11-85 16:55:00* Test Item Value Reference Range Interpretation Comme nts Urine Cocaine Screen (test code = 87888-6) Positive ng/mL Zfomqv=774 [facility] HealthUrine methadone ougxsn4973-89-39 16:55:00* Test Item Value Reference Range Interpretation Comme nts Urine Methadone, Qualitative (test code = 37490-4) Negative ng/mL Zrvqlq=251 [facility]Urine opiates screening aegp6105-39-81 16:55:00* Test Item Value Reference Range Interpretation Comme nts Urine Opiates Screen (test code = 11056-8) Negative ng/mL Oenuif=422 [facility]Urine phencyclidine detection by screening wwoqjh7616-35-47 16:55:00* Test Item Value Reference Range Interpretation Comme nts Urine Phencyclidine Screen (test code = 97679-3) Negative ng/mL Cutoff=25 [facility]rine cannabinoids detection by screening ybfwny5840-23-71 16:55:00* Test Item Value Reference Range Interpretation Comme nts Urine Cannabinoids (test cod e = 69092-5) Positive ng/mL Cutoff=50 [facility] HealthScreening urine tricyclic antidepressants pzzpmlhyb7036-94-15 16:55:00* Test Item Value Reference Range Interpretation Comme nts Ur Tricyclic Antidepressants Screen (test code = 92791-8) Negative ng/mL Tigckb=319 [facility]Urine oxycodone detection by screening ckwjab1184-73-43 16:55:00 * Test Item Value Reference Range Interpretation Comme nts Urine Oxycodone Screen (test code = 09356-4) Negative ng/mL Dlkkqu=045 [facility] HealthSpecific gravity of Urine by Automated test rdxvv3495-41-86 16:55:00* Test Item Value Reference Range Interpretation Comme nts Urine Specific [place] (test code = 46660-7) > 1.030 1.005-1.030 [facility]Urine pH measurement by automated test sczxx5812-38-36 16:55:00* Test Item Value Reference Range Interpretation Comme nts Urine pH (test code = 26840-7) 6.0 5.0-8.0 [facility] drug screen comment gxzclwbsjohpyx3847-22-93 16:55:00* Test Item Value Reference Range Interpretation Comme nts Urine Drug Screen Comment (t est code = 81012-9) See Note [facility] HealthUrine sediment granular casts count by microscopy (number/low power field)2019-08-06 16:55:00* Test Item Value Reference Range Interpretation Comme nts Urine Granular Casts (test c ode = 5793-5) 0-1 /[LPF] None * [facility] Health[facility]rine methamphetamine mebiqz9337-72-73 16:55:00* Test Item Value Reference Range Interpretation Comme nts Urine Methamphetamines Scree n (test code = 46196-6) Negative ng/mL Otwpyf=609 [facility]Urine propoxyphene screening duwu3161-10-78 16:55:00* Test Item Value Reference Range Interpretation Comme nts Urine Propoxyphene Screen (test code = 42256-2) Negative ng/mL Ccxlyk=171 [facility]Urine amphetamines detection by screening botowo9850-53-86 16:55:00* Test Item Value Reference Range Interpretation Comme nts Urine Amphetamines Screen (test code = 81139-7) Positive ng/mL Rcaxtd=123 [facility] buprenorphine screen with reflex wvptkchqsgze5958-70-70 16:55:00* Test Item Value Reference Range Interpretation Comme nts Urine Buprenorphine (test co de = 3414-0) Negative ng/mL Cutoff=10 [facility]Urine barbiturates detection by screening nwfset2772-16-98 16:55:00* Test Item Value Reference Range Interpretation Comme nts Urine Barbiturates Screen (test code = 83850-0) Negative ng/mL Wlhpfn=020 [facility]rine benzodiazepines detection by screening lslqzz4975-55-77 16:55:00* Test Item Value Reference Range Interpretation Comme nts Urine Benzodiazepines Screen (test code = 71349-4) Negative ng/mL Qajjpp=210 [facility]rine benzoylecgonine detection by screening pvxxvz4945-83-19 16:55:00* Test Item Value Reference Range Interpretation Comme nts Urine Cocaine Screen (test code = 63380-3) Positive ng/mL Pmkksr=310 [facility]Urine methadone idrkvc2706-63-14 16:55:00* Test Item Value Reference Range Interpretation Comme nts Urine Methadone, Qualitative (test code = 36928-0) Negative ng/mL Jgexft=610 [facility]Urine opiates screening xkmf4913-23-06 16:55:00* Test Item Value Reference Range Interpretation Comme nts Urine Opiates Screen (test code = 12614-3) Negative ng/mL Awfjoz=411 [facility]Urine phencyclidine detection by screening qufhmw0404-21-79 16:55:00* Test Item Value Reference Range Interpretation Comme nts Urine Phencyclidine Screen (test code = 45487-3) Negative ng/mL Cutoff=25 [facility]Urine cannabinoids detection by screening piwoja4739-52-21 16:55:00* Test Item Value Reference Range Interpretation Comme nts Urine Cannabinoids (test cod e = 74094-4) Positive ng/mL Cutoff=50 [facility] HealthScreening urine tricyclic antidepressants zesbxzlsl9557-20-89 16:55:00* Test Item Value Reference Range Interpretation Comme nts Ur Tricyclic Antidepressants Screen (test code = 54038-3) Negative ng/mL Rtclmq=017 [facility]rine oxycodone detection by screening vmuxep5505-41-50 16:55:00 * Test Item Value Reference Range Interpretation Comme nts Urine Oxycodone Screen (test code = 12890-0) Negative ng/mL Cgroir=203 [facility] HealthSpecific gravity of Urine by Automated test qbihu1084-12-48 16:55:00* Test Item Value Reference Range Interpretation Comme nts Urine Specific [place] (test code = 62124-5) > 1.030 1.005-1.030 [facility] pH measurement by automated test nppxj1176-04-53 16:55:00* Test Item Value Reference Range Interpretation Comme nts Urine pH (test code = 86654-1) 6.0 5.0-8.0 [facility] drug screen comment chncikjtsvymoh1007-34-75 16:55:00* Test Item Value Reference Range Interpretation Comme nts Urine Drug Screen Comment (t est code = 07576-5) See Note [facility]rine sediment granular casts count by microscopy (number/low power field)2019-08-06 16:55:00* Test Item Value Reference Range Interpretation Comme nts Urine Granular Casts (test c ode = 5793-5) 0-1 /[LPF] None * [facility] Health[facility]rine methamphetamine cjdupp4610-16-41 16:55:00* Test Item Value Reference Range Interpretation Comme nts Urine Methamphetamines Scree n (test code = 91095-7) Negative ng/mL Qzopyv=737 [facility]rine propoxyphene screening oant3959-61-36 16:55:00* Test Item Value Reference Range Interpretation Comme nts Urine Propoxyphene Screen (test code = 38099-7) Negative ng/mL Jbbaip=331 [facility]Urine amphetamines detection by screening wnpbkd8743-13-15 16:55:00* Test Item Value Reference Range Interpretation Comme nts Urine Amphetamines Screen (test code = 38784-7) Positive ng/mL Mqcyuo=025 [facility]rine buprenorphine screen with reflex jyzgrivkrkzr1215-12-06 16:55:00* Test Item Value Reference Range Interpretation Comme nts Urine Buprenorphine (test co de = 3414-0) Negative ng/mL Cutoff=10 [facility]Urine barbiturates detection by screening ddoaew1661-37-70 16:55:00* Test Item Value Reference Range Interpretation Comme nts Urine Barbiturates Screen (test code = 90694-2) Negative ng/mL Hquysx=278 [facility]rine benzodiazepines detection by screening ddayxn9155-92-69 16:55:00* Test Item Value Reference Range Interpretation Comme nts Urine Benzodiazepines Screen (test code = 40786-6) Negative ng/mL Vvbrun=266 [facility] benzoylecgonine detection by screening bdpssz2143-45-25 16:55:00* Test Item Value Reference Range Interpretation Comme nts Urine Cocaine Screen (test code = 90954-0) Positive ng/mL Fwcone=583 [facility]rine methadone hcdrbt7740-06-15 16:55:00* Test Item Value Reference Range Interpretation Comme nts Urine Methadone, Qualitative (test code = 43518-5) Negative ng/mL Ufyedz=954 [facility] HealthUrine opiates screening dcef7928-07-90 16:55:00* Test Item Value Reference Range Interpretation Comme [facility] Urine Opiates Screen (test code = 32146-6) Negative ng/mL Ddtqwh=285 [facility] phencyclidine detection by screening [id number] 16:55:00* Test Item Value Reference Range Interpretation Comme [facility] Urine Phencyclidine Screen (test code = 93531-5) Negative ng/mL Cutoff=25 [facility] cannabinoids detection by screening [id number] 16:55:00* Test Item Value Reference Range Interpretation Comme nts Urine Cannabinoids (test cod e = 96049-4) Positive ng/mL Cutoff=50 [facility] urine tricyclic antidepressants [id number] 16:55:00* Test Item Value Reference Range Interpretation Comme nts Ur Tricyclic Antidepressants Screen (test code = 16366-5) Negative ng/mL Lugjiq=590 [facility] oxycodone detection by screening [id number] 16:55:00 * Test Item Value Reference Range Interpretation Comme nts Urine Oxycodone Screen (test code = 36834-8) Negative ng/mL Xwztdf=191 [facility] gravity of Urine by Automated test [id number] 16:55:00* Test Item Value Reference Range Interpretation Comme nts Urine Specific [place] (test code = 15730-8) > 1.030 1.005-1.030 [facility] pH measurement by automated test [id number] 16:55:00* Test Item Value Reference Range Interpretation Comme nts Urine pH (test code = 65390-4) 6.0 5.0-8.0 [facility] drug screen comment [id number] 16:55:00* Test Item Value Reference Range Interpretation Comme nts Urine Drug Screen Comment (t est code = 83362-1) See Note [facility] [id number] 16:50:00* Test Item Value Reference Range Interpretation Comme nts Blood Gas Comments (test code = 8267-7) HR 85 [facility] [id number] 16:50:00* Test Item Value Reference Range Interpretation Comme nts Blood Gas Comments (test code = 8267-7) HR 85 [facility] [id number] 16:50:00* Test Item Value Reference Range Interpretation Comme nts Blood Gas Comments (test code = 8267-7) HR 85 [facility] or plasma total bilirubin measurement (mass/volume) 2019-08-06 16:19:00* Test Item Value Reference Range Interpretation Comme nts Total Bilirubin (test code = 1975-2) 1.0 mg/dL 0.2-1.2 [facility] or plasma aspartate aminotransferase measurement (enzymatic activity/volume)2019-08-06 16:19:00* Test Item Value Reference Range Interpretation Comme nts Aspartate Amino Transf (AST/ SGOT) (test code = 1920-8) 133 U/L 5-34 [facility] or plasma alanine aminotransferase measurement (enzymatic activity/volume)2019-08-06 16:19:00* Test Item Value Reference Range Interpretation Comme nts Alanine Aminotransferase (AL T/SGPT) (test code = 1742-6) 72 U/L 0-55 [facility] or plasma protein measurement (mass/volume)2019-08-06 16:19:00* Test Item Value Reference Range Interpretation Comme nts Total Protein (test code = 2885-2) 7.0 g/dL 6.4-8.3 [facility] or plasma albumin measurement (mass/volume)2019-08-06 16:19:00* Test Item Value Reference Range Interpretation Comme nts Albumin (test code = 1751-7) 4.1 g/dL 3.5-5.0 [facility] or plasma alkaline phosphatase measurement (enzymatic activity/volume)2019-08-06 16:19:00* Test Item Value Reference Range Interpretation Comme nts Alkaline Phosphatase (test c ode = 6768-6) 60 U/L 0-749 [facility] or plasma ethanol measurement (mass/volume)2019-08-06 16:19:00* Test Item Value Reference Range Interpretation Comme nts Ethyl Alcohol Level (test co de = 5643-2) < 10 mg/dL Not Available [facility] plasma total bilirubin measurement (mass/volume) 2019-08-06 16:19:00* Test Item Value Reference Range Interpretation Comme nts Total Bilirubin (test code = 1975-2) 1.0 mg/dL 0.2-1.2 [facility] or plasma aspartate aminotransferase measurement (enzymatic activity/volume)2019-08-06 16:19:00* Test Item Value Reference Range Interpretation Comme nts Aspartate Amino Transf (AST/ SGOT) (test code = 1920-8) 133 U/L 5-34 [facility] or plasma alanine aminotransferase measurement (enzymatic activity/volume)2019-08-06 16:19:00* Test Item Value Reference Range Interpretation Comme nts Alanine Aminotransferase (AL T/SGPT) (test code = 1742-6) 72 U/L 0-55 [facility] or plasma protein measurement (mass/volume)2019-08-06 16:19:00* Test Item Value Reference Range Interpretation Comme nts Total Protein (test code = 2885-2) 7.0 g/dL 6.4-8.3 [facility] or plasma albumin measurement (mass/volume)2019-08-06 16:19:00* Test Item Value Reference Range Interpretation Comme nts Albumin (test code = 1751-7) 4.1 g/dL 3.5-5.0 [facility] or plasma alkaline phosphatase measurement (enzymatic activity/volume)2019-08-06 16:19:00* Test Item Value Reference Range Interpretation Comme nts Alkaline Phosphatase (test c ode = 6768-6) 60 U/L 0-749 [facility] or plasma ethanol measurement (mass/volume)2019-08-06 16:19:00* Test Item Value Reference Range Interpretation Comme nts Ethyl Alcohol Level (test co de = 5643-2) < 10 mg/dL Not Available [facility] or plasma total bilirubin measurement (mass/volume) 2019-08-06 16:19:00* Test Item Value Reference Range Interpretation Comme nts Total Bilirubin (test code = 1975-2) 1.0 mg/dL 0.2-1.2 [facility] or plasma aspartate aminotransferase measurement (enzymatic activity/volume)2019-08-06 16:19:00* Test Item Value Reference Range Interpretation Comme nts Aspartate Amino Transf (AST/ SGOT) (test code = 1920-8) 133 U/L 5-34 [facility] or plasma alanine aminotransferase measurement (enzymatic activity/volume)2019-08-06 16:19:00* Test Item Value Reference Range Interpretation Comme nts Alanine Aminotransferase (AL T/SGPT) (test code = 1742-6) 72 U/L 0-55 [facility] or plasma protein measurement (mass/volume)2019-08-06 16:19:00* Test Item Value Reference Range Interpretation Comme nts Total Protein (test code = 2885-2) 7.0 g/dL 6.4-8.3 [facility] or plasma albumin measurement (mass/volume)2019-08-06 16:19:00* Test Item Value Reference Range Interpretation Comme nts Albumin (test code = 1751-7) 4.1 g/dL 3.5-5.0 [facility] or plasma alkaline phosphatase measurement (enzymatic activity/volume)2019-08-06 16:19:00* Test Item Value Reference Range Interpretation Comme nts Alkaline Phosphatase (test c ode = 6768-6) 60 U/L 0-749 [facility] or plasma ethanol measurement (mass/volume)2019-08-06 16:19:00* Test Item Value Reference Range Interpretation Comme nts Ethyl Alcohol Level (test co de = 5643-2) < 10 mg/dL Not Available [facility] in Platelet poor plasma by Coagulation [id number] 14:44:00* Test Item Value Reference Range Interpretation Comme nts Prothromb Time International Ratio (test code = 6301-6) 1.1 {ratio} 0.8-1.2 [facility] partial thromboplastin time (PTT)2019-08-06 14:44:00* Test Item Value Reference Range Interpretation Comme nts Activated Partial Thrombopla st Time (test code = 43390-1) 24.4 s 21.0-33.0 [facility] HealthProthrombin time (PT) in platelet poor [id number] 14:44:00 * Test Item Value Reference Range Interpretation Comme nts Prothrombin Time (test code = 5902-2) 11.4 s 9.4-12.0 [facility] in Platelet poor plasma by Coagulation [id number] 14:44:00* Test Item Value Reference Range Interpretation Comme nts Prothromb Time International Ratio (test code = 6301-6) 1.1 {ratio} 0.8-1.2 [facility] partial thromboplastin time (PTT)2019-08-06 14:44:00* Test Item Value Reference Range Interpretation Comme nts Activated Partial Thrombopla st Time (test code = 27520-5) 24.4 s 21.0-33.0 [facility]Prothrombin time (PT) in platelet poor [id number] 14:44:00 * Test Item Value Reference Range Interpretation Comme nts Prothrombin Time (test code = 5902-2) 11.4 s 9.4-12.0 [facility] in Platelet poor plasma by Coagulation [id number] 14:44:00* Test Item Value Reference Range Interpretation Comme nts Prothromb Time International Ratio (test code = 6301-6) 1.1 {ratio} 0.8-1.2 [facility] partial thromboplastin time (PTT)2019-08-06 14:44:00* Test Item Value Reference Range Interpretation Comme nts Activated Partial Thrombopla st Time (test code = 52383-0) 24.4 s 21.0-33.0 [facility]Prothrombin time (PT) in platelet poor [id number] 14:44:00 * Test Item Value Reference Range Interpretation Comme nts Prothrombin Time (test code = 5902-2) 11.4 s 9.4-12.0 [facility]
--- NOTE | 2023-11-25 18:01 | EDPHYS ---
Physician Documentation [facility] Name: Deric Winchester Age: 23 yrs Sex: Male : 2000 Arrival Date: 11/25/2023 Time: 16:27 Bed Treatment Private MD: AIDAN Physician Petey Garza HPI: 11/25 17:55 This 23 yrs old Male presents to ER via Ambulatory with complaints of shruthi Toothache. 17:55 The patient presents with broken tooth/teeth, pain, redness, swelling. The problem is shruthi located in the lower left first molar. Onset: The symptoms/episode began/occurred 5 day(s) ago. Duration: The symptoms are continuous, and are steadily getting worse. Associated signs and symptoms: Pertinent positives: pain, swelling. Severity of symptoms: At their worst the symptoms were moderate, in the emergency department the symptoms are unchanged. The patient has experienced similar episodes in the past, a few times. Historical: - Allergies: 17:07 PENICILLINS; nj1 - PMHx: 17:07 None; nj1 - Immunization history:: Client reports having NOT received the Covid vaccine. - Social history:: Smoking status: Patient reports the use of cigarette tobacco products, smokes one-half pack cigarettes per day. - Family history:: not pertinent. ROS: 17:55 Constitutional: Negative for fever, chills, and weight loss, Eyes: Negative for injury, shruthi pain, redness, and discharge, Neck: Negative for injury, pain, and swelling, Cardiovascular: Negative for chest pain, palpitations, and edema, Respiratory: Negative for shortness of breath, cough, wheezing, and pleuritic chest pain, Abdomen/GI: Negative for abdominal pain, nausea, vomiting, diarrhea, and constipation, Back: Negative for injury and pain, : Negative for injury, bleeding, discharge, and swelling, MS/Extremity: Negative for injury and deformity, Skin: Negative for injury, rash, and discoloration, Neuro: Negative for headache, weakness, numbness, tingling, and seizure, Psych: Negative for depression, anxiety, suicide ideation, homicidal ideation, and hallucinations, Allergy/Immunology: Negative for hives, rash, and allergies, Endocrine: Negative for neck swelling, polydipsia, polyuria, polyphagia, and marked weight changes, 17:55 ENT: Positive for Teeth pain Exam: 17:55 Constitutional: This is a well developed, well nourished patient who is awake, alert, shruthi and in no acute distress. Head/Face: Normocephalic, atraumatic. Eyes: Pupils equal round and reactive to light, extra-ocular motions intact. Lids and lashes normal. Conjunctiva and sclera are non-icteric and not injected. Cornea within normal limits. Periorbital areas with no swelling, redness, or edema. Neck: Trachea midline, no thyromegaly or masses palpated, and no cervical lymphadenopathy. Supple, full range of motion without nuchal rigidity, or vertebral point tenderness. No Meningismus. Chest/axilla: Normal chest wall appearance and motion. Nontender with no deformity. No lesions are appreciated. Cardiovascular: Regular rate and rhythm with a normal S1 and S2. No gallops, murmurs, or rubs. Normal PMI, no JVD. No pulse deficits. Respiratory: Lungs have equal breath sounds bilaterally, clear to auscultation and percussion. No rales, rhonchi or wheezes noted. No increased work of breathing, no retractions or nasal flaring. Abdomen/GI: Soft, non-tender, with normal bowel sounds. No distension or tympany. No guarding or rebound. No evidence of tenderness throughout. Back: No spinal tenderness. No costovertebral tenderness. Full range of motion. Male : Normal genitalia with no discharge or lesions. Skin: Warm, dry with normal turgor. Normal color with no rashes, no lesions, and no evidence of cellulitis. MS/ Extremity: Pulses equal, no cyanosis. Neurovascular intact. Full, normal range of motion. Neuro: Awake and alert, GCS 15, oriented to person, place, time, and situation. Cranial nerves II-XII grossly intact. Motor strength 5/5 in all extremities. Sensory grossly intact. Cerebellar exam normal. Normal gait. Psych: Awake, alert, with orientation to person, place and time. Behavior, mood, and affect are within normal limits. 17:55 ENT: Dental exam: abscess, cellulitis, dental caries, that is moderate, fractured teeth are noted, specifically the lower left first molar (#19) and lower left second bicuspid (#20), gum swelling, that is moderate, specifically in the lower left first molar (#19) and lower left second bicuspid (#20), Vital Signs: 17:06 BP 147 / 91; Pulse 80; Resp 18; Temp 98.7(O); Pulse Ox 100% ; Weight 104.33 kg; Height nj1 6 ft. 0 in. ; Pain 10/10; 17:06 Body Mass Index 31.19 (104.33 kg, 182.88 cm) nj1 17:06 Pain Scale: Adult nj1 Procedures: 18:03 I \T\ D: Incision and drainage was performed for an abscess of the left lower left first shruthi molar (#19) Anesthetized with 3 ml's 1% Lidocaine w/ Epi. Incised with #11 blade. Drained purulent fluid. the patient tolerated the procedure well. MDM: 16:34 Patient medically screened. shruthi 17:58 Differential diagnosis: dental caries, gingivitis, dental abscess. Data reviewed: vital shruthi signs, nurses notes. Consideration of Admission/Observation Escalation of care including admission/observation considered. I considered the following discharge prescriptions or medication management in the emergency department Medications were administered in the Emergency Department. See MAR. Test considered but Not performed: Labs: NO LABS. Historians other than the Patient: PT WELL INFORMED. Care significantly affected by the following chronic conditions: NONE , FRACTURED TEETH. 11/25 17:25 Order name: Dressing - Wound; Complete Time: 17:56 [facility] 11/25 17:25 Order name: Gloves, Sterile; Complete Time: 17:56 [facility] 11/25 17:25 Order name: Setup Suture Tray; Complete Time: 17:56 [facility] Administered Medications: 17:50 Drug: Lidocaine-Epinephrine Infiltration -1%: (1:100,000) 3 ml 20 ml Infiltration once; nj1 to bedside {Note: 20 ml vial given to Dr Garza for administration.} Volume: 20 ml; Route: Infiltration; 18:18 Drug: Clindamycin PO 300 mg PO once Route: PO; ph 18:26 Drug: Ibuprofen PO 600 mg PO once Route: PO; ph Disposition Summary: 11/25/23 18:01 Discharge Ordered Notes: Location: Home shruthi Problem: new shruthi Symptoms: have improved shruthi Condition: Stable shruthi Diagnosis - Dental root caries shruthi - Dental caries, unspecified shruthi - Cutaneous abscess of face - LEFT LOWER 1ST MOLAR shruthi Followup: shruthi - With: Private Physician - When: 2 - 3 days - Reason: Recheck today's complaints, Continuance of care, Re-evaluation by your physician Followup: [facility] - With: Krishna Crow DDS - When: 2 - 3 days - Reason: Recheck today's complaints, Continuance of care, Re-evaluation by your physician Discharge Instructions: - Discharge Summary Sheet [facility] - Dental Caries, Adult [facility] - Dental Pain [facility] - Incision and Drainage [facility] - Dental Pain, [id number] [facility] - Incision and Drainage, Care After [facility] Forms: - Medication Reconciliation Form [facility] - Thank You Letter [facility] - Antibiotic Education [facility] - Prescription Opioid Use [facility] - Patient Portal Instructions [facility] - Leadership Thank You Letter [facility] Prescriptions: - acetaminophen-codeine 300-30 mg Oral tablet - take 2 tablet ORAL route every 6 hours as needed for pain; 20 tablet; Refills: [facility] 0, Product Selection Permitted - Clindamycin HCl 300 mg Oral Capsule - take 1 capsule ORAL route every 6 hours for 10 days; 40 capsule; Refills: 0, [facility] Product Selection Permitted - Ibuprofen 600 mg Oral Tablet - take 1 tablet ORAL route every 6 hours As needed take with food; 30 tablet; [facility] Refills: 0, Product Selection Permitted Signatures: Petey Garza MD MD cha Hall, Patricia, RN RN Destiney Bowers RN RN nj1 Corrections: (The following items were deleted from the chart) 17:08 17:07 Allergies: No Known Allergies; nj1 nj1
--- NOTE | 2023-11-25 18:01 | ER ---
Nurse's Notes [facility] Name: Deric Winchester Age: 23 yrs Sex: Male : 2000 Arrival Date: 11/25/2023 Time: 16:27 Bed Treatment Private MD: Diagnosis: Dental root caries;Dental caries, unspecified;Cutaneous abscess of face-LEFT LOWER 1ST MOLAR Presentation: 11/25 17:06 Chief complaint: Patient states: Left lower toothache for the last couple of days. nj1 Taking ibuprofen/tylenol with some relief. Coronavirus screen: Vaccine status: Patient reports being unvaccinated. Ebola Screen: Patient denies travel to an Ebola-affected area in the 21 days before illness onset. Initial Sepsis Screen: Does the patient meet any 2 criteria? No. Patient's initial sepsis screen is negative. Does the patient have a suspected source of infection? No. Patient's initial sepsis screen is negative. Risk Assessment: Do you want to hurt yourself or someone else? Patient reports no desire to harm self or others. Onset of symptoms was October 2023. 17:06 Method Of Arrival: Ambulatory [facility] 17:06 Acuity: RODNEY 4 [facility] Triage Assessment: 17:08 General: Appears in no apparent distress. Behavior is calm, cooperative, appropriate nj for age. Pain: Complains of pain in left lower teeth Pain currently is 10 out of 10 on a pain scale. EENT: Reports pain. Neuro: Level of Consciousness is awake, alert, obeys commands, Oriented to person, place, time, situation. Cardiovascular: Patient's skin is warm and dry. Respiratory: Airway is patent Respiratory effort is even, unlabored. Historical: - Allergies: 17:07 PENICILLINS; nj1 - PMHx: 17:07 None; nj1 - Immunization history:: Client reports having NOT received the Covid vaccine. - Social history:: Smoking status: Patient reports the use of cigarette tobacco products, smokes one-half pack cigarettes per day. - Family history:: not pertinent. Screenin:26 [facility] ED Fall Risk Assessment (Adult) History of falling in the last 3 months, ph including since admission No falls in past 3 months (0 pts) Score/Fall Risk Level 0 - 2 = Low Risk Oriented to surroundings, Maintained a safe environment. Abuse screen: Denies threats or abuse. Denies injuries from another. Nutritional screening: No deficits noted. Tuberculosis screening: No symptoms or risk factors identified. Assessment: 18:26 General: Appears in no apparent distress. Behavior is calm, cooperative. Pain: ph Complains of pain in mouth. Respiratory: Airway is patent Respiratory effort is even, unlabored, Respiratory pattern is. Derm: Skin is pink, warm \T\ dry. Vital Signs: 17:06 BP 147 / 91; Pulse 80; Resp 18; Temp 98.7(O); Pulse Ox 100% ; Weight 104.33 kg; Height nj1 6 ft. 0 in. ; Pain 10/10; 17:06 Body Mass Index 31.19 (104.33 kg, 182.88 cm) [facility] 17:06 Pain Scale: Adult [facility] ED Course: 16:28 Patient arrived in ED. im 16:34 Petey Garza MD is Attending Physician. [facility] 17:07 Triage completed. [facility] 17:08 Arm band placed on left wrist. [facility] 17:[address], RN is Primary Nurse. ph 18:00 Krishna Crow DDS is Referral Physician. [facility] 18:26 Patient has correct armband on for positive identification. Door closed. Noise ph minimized. 18:27 No provider procedures requiring assistance completed. Patient did not have IV access ph during this emergency room visit. Administered Medications: 17:50 Drug: Lidocaine-Epinephrine Infiltration -1%: (1:100,000) 3 ml 20 ml Infiltration once; [facility] to bedside {Note: 20 ml vial given to Dr Garza for administration.} Volume: 20 ml; Route: Infiltration; 18:18 Drug: Clindamycin PO 300 mg PO once Route: PO; ph 18:26 Drug: Ibuprofen PO 600 mg PO once Route: PO; ph Medication: 18:26 VIS not applicable for this client. ph Outcome: 18:01 Discharge ordered by . [facility] 18:27 Discharged to home ambulatory, ph 18:27 Condition: good 18:27 Discharge instructions given to patient, Instructed on discharge instructions, follow up and referral plans. medication usage, Demonstrated understanding of instructions, follow-up care, medications, Prescriptions given X 3, 18:27 Patient left the ED. ph Signatures: Petey Garza MD MD cha Hall, Patricia, RN RN ph Destiney Bowers RN RN nj1 Kathie Acevedo Corrections: (The following items were deleted from the chart) 17:08 17:07 Allergies: No Known Allergies; nj1 nj1
[2023-11-25 18:37] VITALS: BP 147/91; TEMP 98.7; O2SAT 100
== END ==
LOC: ER 16:27
DX: K02.7 Dental root caries (principal); K12.2 Cellulitis and abscess of mouth
CPT/HCPCS: 99283